=== PATIENT | female | born 2000 | race African-American/Black ===

== ENCOUNTER 2022-08-05 12:10 | Emergency (ER) | payer OTHER ==
[2022-08-05] MEDS ORDERED: Albuterol/Ipratropium 3.0-0.5 MG/3 ML Neb Soln NEB ONE (14:45)
[2022-08-05] MEDS ORDERED: Albuterol 0.042% 1.25 MG/3 ML Neb Soln NEB ONE (15:12)
[2022-08-05] MEDS ORDERED: Albuterol 8 GM Inhaler INH ONE (15:13)
== END 2022-08-05 15:35 | disposition home or self-care (01) ==
LOC: KA.ED 12:10
DX: J45.901 Unspecified asthma with (acute) exacerbation (principal); Z79.899 Other long term (current) drug therapy; Z91.048 Other nonmedicinal substance allergy status
CPT/HCPCS: 94640; 99284; A9270-GY; J7620-GY

== ENCOUNTER 2022-08-10 17:24 | Emergency (ER) | payer OTHER ==
[2022-08-10] MEDS: Albuterol/Ipratropium 3.0-0.5 MG/3 ML Neb Soln NEB ONE (17:45)
[2022-08-10] MEDS: methylPREDNISolone Sodium Succinate 125 MG/2 ML SDV IVPUSH ONE (18:00)
[2022-08-10] MEDS: Albuterol 0.083% 2.5 MG/3 ML Neb Soln NEB ONE ×2 (18:30→19:24)
[2022-08-10] MEDS ORDERED: Albuterol 8 GM Inhaler INH PRN (19:14)
[2022-08-10] MEDS: predniSONE 20 MG Tab PO ONE (19:22)
== END 2022-08-10 19:35 | disposition home or self-care (01) ==
LOC: KA.ED 17:24
DX: J45.901 Unspecified asthma with (acute) exacerbation (principal); Z91.048 Other nonmedicinal substance allergy status
CPT/HCPCS: 71046; 81025; 96374; 99285; 99285-25; A9270-GY; J2930; J7512; J7613-GY; J7620-GY